=== PATIENT | male | born 1945 | race Caucasian/White ===

== ENCOUNTER 2017-08-25 06:55 | Day surgery (SDC) | payer OTHER ==
[2017-08-24 15:27] VITALS: BMI 27.9
[2017-08-25] MEDS ORDERED: LIDOCAINE HCL 2% (20ML MULTI-DOSE VIAL) NR ONE (07:52)
[2017-08-25] MEDS ORDERED: PROPOFOL 20 ML ONE ×2 (07:52)
[2017-08-25 08:42] VITALS: TEMP 97.5
[2017-08-25 09:31] VITALS: BP 119/65; PULSE 59
--- NOTE | 2017-08-27 18:23 | PATH ---
Surgical Pathology Report Patient Name: MICHELLE HURD [facility]. Rec. #: [id number] /Age/Gender: 1945 (Age: 72) / M Account: [id number] Location: ASU-ENDOSCOPY Taken: 08/25/2017 Received: 08/25/2017 Reported: 08/27/2017 Physicians: Nii Mcmahan M.D. Specimen(s) Received A: BX ILEUM B: BX CECUM Clinical History Screening Postoperative diagnosis: Normal colon screening with ileitis Final Diagnosis A. ILEUM, ULCERATION, BIOPSY: ILEAL MUCOSA WITH ACUTE AND CHRONIC ILEITIS AND ASSOCIATED ULCERATION. B. CECUM, BIOPSY: COLONIC MUCOSA WITH FOCAL ACTIVE COLITIS. SEE COMMENT. Comment: Findings are non-specific. Although acute self-limited colitis is a consideration, among other conditions, the possibility of early inflammatory bowel disease cannot be completely excluded. Suggest clinical/radiologic correlation. Electronically Signed Sandra Lazo M.D. Gross Description A. Received in formalin, labeled "biopsy ileum ulceration" are 3 armstrong, irregular portions of soft tissue ranging from 0.3-0.5 cm. in greatest dimension. The specimens are submitted in toto in one cassette. B. Received in formalin, labeled "biopsy cecum" are 2 armstrong, irregular portions of soft tissue averaging 0.3 cm. in greatest dimension. The specimens are submitted in toto in one cassette. 08/25/2017 saudi08/25/2017
== END 2017-08-25 09:20 | disposition home or self-care (01) ==
LOC: JASU-ENDO 06:55
PROVIDERS: ATTEND Internal Medicine Gastroenterology
PROC: 0DBB8ZX Excision of Ileum, Via Natural or Artificial Opening Endoscopic, Diagnostic (ICD-10-PCS; principal; 2017-08-25 08:00)
DX: Z12.11 Encounter for screening for malignant neoplasm of colon (principal); K63.3 Ulcer of intestine; K52.89 Other specified noninfective gastroenteritis and colitis
CPT/HCPCS: 88305-TC

== ENCOUNTER 2024-06-12 10:00 | Day surgery (SDC) | payer OTHER ==
[2024-06-05 13:48] VITALS: BMI 26.1
[2024-06-12 11:24] VITALS: TEMP 97.7
[2024-06-12 11:32] VITALS: RESP 18
[2024-06-12 12:31] VITALS: BP 123/67; PULSE 57
== END 2024-06-12 12:33 | disposition home or self-care (01) ==
LOC: JASU-ENDO 10:00
PROVIDERS: ATTEND Internal Medicine Gastroenterology
PROC: 0DBB8ZX Excision of Ileum, Via Natural or Artificial Opening Endoscopic, Diagnostic (ICD-10-PCS; 2024-06-12)
PROC: 0DB98ZX Excision of Duodenum, Via Natural or Artificial Opening Endoscopic, Diagnostic (ICD-10-PCS; 2024-06-12)
PROC: 0DB78ZX Excision of Stomach, Pylorus, Via Natural or Artificial Opening Endoscopic, Diagnostic (ICD-10-PCS; 2024-06-12)
PROC: 0DB68ZX Excision of Stomach, Via Natural or Artificial Opening Endoscopic, Diagnostic (ICD-10-PCS; 2024-06-12)
PROC: 0DB48ZX Excision of Esophagogastric Junction, Via Natural or Artificial Opening Endoscopic, Diagnostic (ICD-10-PCS; 2024-06-12)
PROC: 0DBH8ZX Excision of Cecum, Via Natural or Artificial Opening Endoscopic, Diagnostic (ICD-10-PCS; principal; 2024-06-12 11:00)
DX: Z12.11 Encounter for screening for malignant neoplasm of colon (principal); K57.30 Diverticulosis of large intestine without perforation or abscess without bleeding; K29.50 Unspecified chronic gastritis without bleeding; K21.00 Gastro-esophageal reflux disease with esophagitis, without bleeding
CPT/HCPCS: 82962; 88305-TC; 88342-TC